=== PATIENT | male | born 1960 | race Caucasian/White ===

== ENCOUNTER 2019-07-14 08:00 | Inpatient (IN) ==
[2019-07-14] MEDS ORDERED: CLINDAMYCIN 600 MG/D5W 600 MG/50 ML IVPB IV ONE (08:33)
--- NOTE | 2019-07-14 08:33 | PROVIDER DOCUMENTATION ---
HPI-Rash/Wound/ReCheck - General Chief Complaint: Return/Recheck Stated Complaint: RETURN/RECHECK Time Seen by Provider: 07/14/19 08:28 Source: patient Allergies/Adverse Reactions: Allergies Allergy/AdvReac Type Severity Reaction Status Date / Time No Known Allergies Allergy Verified 07/13/19 14:57 Home Medications: Home Medication List Medication Instructions Recorded Confirmed Last Taken Type LISINOpril [Prinivil] 10 mg PO DAILY 07/14/19 07/14/19 02/17/19 10:00 History - History of Present Illness-Dermatology Nature of Presenting Problem: A 58 Y/O MALE PRESENTS WITH C/O PAIN AND SWELLING OF HIS LEFT HAND. IT HAS BEEN GOING ON FOR 3-4 DAYS AND IS PROGRESSIVELY GOT WORSE. HAS BEEN HAVING REDNESS AND THROBBING PAIN IN THE LEFT HAND. 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 PT DOES NOT REMEMBER WHICH ABXS HE WAS ON. 2-3 DAYS AFTER HE FINISHED THE ABXS THE PT STARTED HAVING SWELLING AND PAIN. TODAY PT SAYS HE FINISHED ABXS ATLEAST A WEEK AGO. PT WAS SEEN IN THE ER YESTERDAY AND LEFT WITH OUT TREATMENT, ON ASKING SAYS HE WAS DRINKING AND DID NOT WANT TO STAY. SAYS THE PAIN IS WORSE THAN YESTERDAY, DENIES ANY FEVER OR CHILLS BUT SAYS THE LEFT HAND FEELS WARM AND THE PAIN IS SHOOTING UP INTO HIS FOREARM. Review of Systems - Adult - REVIEW OF SYSTEMS - ADULT Constitutional: denies: no symptoms reported Eyes: denies: no symptoms reported Ears, Nose, Mouth & Throat: denies: no symptoms reported Cardiovascular: denies: no symptoms reported Respiratory: denies: no symptoms reported Gastrointestinal: denies: no symptoms reported Genitourinary: denies: no symptoms reported Musculoskeletal: reports: see HPI Integumentary: reports: see HPI Neurological: denies: no symptoms reported Psychiatric: denies: no symptoms reported Endocrine: denies: no symptoms reported Hematologic/Lymphatic: denies: no symptoms reported Allergic/Immunologic: denies: no symptoms reported Past History - Adult - PAST MEDICAL HISTORY-ADULT Review of Records: reports: Old Records Reviewed, Nursing Assessment Review, Medications Reviewed, Social history reviewed & non-contributory. Physical Exam-General - PHYSICAL EXAM-ADULT Initial Vital Signs Reviewed: Yes - CONSTITUTIONAL General Appearance: appears well, alert, no apparent distress - EYES Eyes: PERRL/EOMI - HEAD, EARS, NOSE, MOUTH & THROAT HENMT: normocephalic/atraumatic, moist mucous membranes, normal ENT inspection - NECK Neck: supple - RESPIRATORY Respiratory: lungs clear, normal breath sounds, no pleuratic chest pain, no respiratory distress, no accessory muscle use - CARDIOVASCULAR Cardiovascular: regular rate, rhythm, no murmur - GASTROINTESTINAL (ABDOMEN) Abdominal Exam: non tender, soft - MUSCULOSKELETAL Back Exam: no CVA tenderness, no vertebral tenderness Extremity: other (SWELLING, ERYTHEMA AND TENDERNESS OF THE LEFT HAND INVOLVING THE 2ND AND 3RD FINGERS AND ALL DORSUM OF LEFT HAND UPTO THE WRIST. FULL ROM. THERE IS A 1.5 CM HEALING LACERATION WITH SURROUNDING ERYTHEMA AND TENDERNESS WITH LOCALIZED EDEMA AT THE 2ND AND 3RD MCP JOINT.) Peripheral Pulses: radial (R): 2+, radial (L): 2+ - SKIN Integumentary: swelling (R HAND), tenderness (R HAND), warm (R HAND) - NEUROLOGIC Neurologic: grossly normal - PSYCHIATRIC Psych/Mental Status: normal mood/affect, normal thought content, normal thought process, oriented x 3 Progress - PLAN OF CARE/RESULTS Progress/Plan/Lab Results: Vital Signs - 8 hr 07/14/19 08:07 07/14/19 09:25 07/14/19 09:59 Temperature 98 F 98 F Pulse Rate 99 H 94 H 82 Respiratory Rate 18 19 24 Blood Pressure 185/128 171/121 148/105 O2 Sat by Pulse Oximetry 94 L 97 97 07/14/19 10:30 Temperature Pulse Rate 79 Respiratory Rate 25 H Blood Pressure 175/125 O2 Sat by Pulse Oximetry 94 L Laboratory Results - last 24 hr 07/14/19 07/14/19 07/14/19 08:40 09:13 09:20 WBC 9.88 RBC 5.27 Hgb 17.5 Hct 51.7 MCV 98.1 MCH 33.2 H MCHC 33.8 RDW Std Deviation 11.6 Plt Count 229 MPV 9.6 Immature Gran % (Auto) 0.2 Neut % (Auto) 76.2 H Lymph % (Auto) 11.5 L Valencia % (Auto) 11.2 H Eos % (Auto) 0.6 Baso % (Auto) 0.3 Immature Gran # (Auto) 0.02 Neut # (Auto) 7.52 H Lymph # (Auto) 1.14 L Valencia # (Auto) 1.11 H Eos # (Auto) 0.06 Baso # (Auto) 0.03 Sodium 139 Potassium 4.5 Chloride 101 Carbon Dioxide 26 Anion Gap 13 BUN 8 Creatinine 0.7 Estimated GFR/1.73 m2 > 60 BUN/Creatinine Ratio 11 Glucose 114 H Calculated Osmolality 277 Calcium 8.7 L Total Bilirubin 0.50 AST 33 ALT 35 Alkaline Phosphatase 106 Total Protein 7.6 Albumin 3.8 Globulin 4.0 Albumin/Globulin Ratio 1.0 Urine Opiates Screen NONE DETECTED Ur Oxycodone Screen NONE DETECTED Urine Methadone Screen NONE DETECTED U Propoxyphene Qual NONE DETECTED Ur Barbituates Screen NONE DETECTED Ur Tricyclics Screen NONE DETECTED Ur Phencyclidine Scrn NONE DETECTED Ur Amphetamines Screen NONE DETECTED U Methamphetamines Scrn NONE DETECTED U Benzodiazepines Scrn NONE DETECTED Urine Cocaine Screen NONE DETECTED U Cannabinoids Screen PRESUMPTIVE POSITIVE A Orders Category Date Time Status CBC WITH ELECTRONIC DIFF [HEME] Stat Lab 07/14/19 08:40 Completed COMPREHENSIVE METABOLIC PANEL [CHEM] Stat Lab 07/14/19 09:13 Completed URINE DRUG SCREEN PL Stat Lab 07/14/19 09:20 Completed Clindamycin 600 mg/D5w Med 07/14/19 08:33 Discontinued 600 mg in 50 ml IV NOW Clonidine [Catapres] Med 07/14/19 09:21 Discontinued 0.2 mg PO NOW ONE Ketorolac [Toradol] Med 07/14/19 09:28 Discontinued 30 mg IV NOW ONE Result Diagrams: 07/14/19 08:40 07/14/19 09:13 - REASSESSMENT Reassessment #1 Time Reassessed: 10:50 Status: improving (BP IMPROVED TO 114/64 AFTER CLONIDINE. WILL ADMIT FOR IV ABXS. D/W PT, WHO IS AGREABLE WITH THE ADMISSION.) - CONSULTS/PCP/HOSPITALIST Notification #1 *Consult/PCP/Hospitalist*: D/W DR JAVED Time Discussed: 10:45 Consult Disposition: Admit Departure - Departure Date of Disposition Decision: 07/14/19 Time of Disposition Decision: 10:50 DIAGNOSIS: Cellulitis and abscess of hand, Uncontrolled hypertension Disposition: ADMITTED INPATIENT 09 Certified Medical Emergency: Emergent Condition: Stable Referrals and Follow-Ups: None,PCP [Primary Care Provider] - - Critical Care Note This patient required my direct & personal management of CC.: No Attestation - Physician/ WALLACE Attestation Patient care was provided by Advanced Practice Provider:: No The physician spent face to face time with patient:: Yes Advanced Practice Provider documentation review:: Supervising physician onsite and consulted in the evaluation and care of this patient. The physician did have a face to face encounter with the patient.
[2019-07-14 08:46] LABS: HEMATOCRIT 51.7 % (42.0-52.0); HEMOGLOBIN 17.5 g/dL (14.0-18.0); RBC 5.27 XMIL (4.7-6.1); WBC 9.88 X1000 (4.8-10.8)
[2019-07-14 08:47] LABS: BASO# 0.03 X1000 (0.0-0.2); BASO% 0.3 % (0.0-0.8); EOS# 0.06 X1000 (0.0-0.7); EOS% 0.6 % (0.0-10.0); IMM GRAN# 0.02 X1000 (0.0-0.04); IMM GRAN% 0.2 % (0.0-0.5); LYMPH# 1.14 X1000 (1.2-3.4); LYMPH% 11.5 % (20.5-51.1); MCH 33.2 PG (27-31); MCHC 33.8 g/dL (33-37); MCV 98.1 FL (81-99); MONO# 1.11 X1000 (0.11-0.59); MONO% 11.2 % (1.7-9.3); MPV 9.6 FL (7.4-10.4); NEUT# 7.52 X1000 (1.4-6.5); NEUT% 76.2 % (42.2-75.2); PLT 229 X1000 (130-400); RDW 11.6 % (11.5-14.5)
[2019-07-14 09:10] LABS: ESTIMATED GFR > 60
[2019-07-14] MEDS ORDERED: CATAPRES PO ONE (09:21)
[2019-07-14] MEDS ORDERED: TORADOL IV ONE (09:28)
[2019-07-14 09:52] LABS: UR AMPHETAMINES QUAL NONE DETECTED (NONE DETECT); UR BARBITUATES QUAL NONE DETECTED (NONE DETECT); UR BENZODIAZEPIN QUAL NONE DETECTED (NONE DETECT); UR CANNABINOIDS QUAL PRESUMPTIVE POSITIVE (NONE DETECT); UR COCAINE QUAL NONE DETECTED (NONE DETECT); UR METHADONE QUAL NONE DETECTED (NONE DETECT); UR METHAMPHETAMINE QUAL NONE DETECTED (NONE DETECT); UR OPIATES QUAL NONE DETECTED (NONE DETECT); UR OXYCODONE QUAL NONE DETECTED (NONE DETECT); UR PCP QUAL NONE DETECTED (NONE DETECT); UR PROPOXYPHENE QUAL NONE DETECTED (NONE DETECT); UR TCA QUAL NONE DETECTED (NONE DETECT)
[2019-07-14 10:11] LABS: POTASSIUM 4.5 mmol/L (3.5-5.1); SODIUM 139 mmol/L (136-145)
[2019-07-14 10:12] LABS: AGAP 13; ALBUMIN 3.8 g/dL (3.5-5.0); BUN 8 mg/dL (8-22); CALCIUM 8.7 mg/dL (8.8-10.2); CHLORIDE 101 mmol/L (98-107); COSMO 277; CREATININE 0.7 mg/dL (0.7-1.2); GLUCOSE 114 mg/dL (70-104); TCO2 26 mmol/L (25-35); TOTAL PROTEIN 7.6 g/dL (6.3-8.3)
[2019-07-14 10:13] LABS: ALKALINE PHOSPHATASE 106 U/L (32-122); GOT 33 U/L (10-34); GPT 35 U/L (10-44)
[2019-07-14] MEDS ORDERED: APRESOLINE IV PRN (11:22)
[2019-07-14] MEDS ORDERED: NS 1,000 ML IV PRN (11:25)
[2019-07-14] MEDS ORDERED: TYLENOL PO PRN (11:25)
[2019-07-14] MEDS ORDERED: ZOFRAN IV PRN (11:25)
[2019-07-14] MEDS ORDERED: VANCOMYCIN IV PER PHARMACY MISC SCH (11:30)
[2019-07-14] MEDS: NORCO-7.5 PO PRN ×3 (12:01→21:45)
--- NOTE | 2019-07-14 12:09 | Diag Imaging Result Doc PS360 ---
EXAM: CHEST-1 VIEW 07/14/2019 HISTORY: sepsis TECHNIQUE: AP portable at 1212 COMMENT: There is an azygos lobe. The heart size and primary vascularity are within normal limits. There is no evidence of acute cardiac or pulmonary disease. IMPRESSION: No evidence of acute disease. Electronically signed by Cezar Merritt 07/14/2019 12:07 PM
[2019-07-14 12:20] LABS: INR 0.86; PROTIME 12.2 Seconds (11.0-16.0)
[2019-07-14 12:21] LABS: PTT 37.5 Seconds (22.3-41.8)
[2019-07-14 12:21] LABS: BILIRUBIN URINE NEGATIVE (NEGATIVE); BLOOD URINE 4+ (NEGATIVE); CLARITY CLEAR (CLEAR); COLOR YELLOW; GLUCOSE URINE NEGATIVE (NEGATIVE); KETONE URINE 1+(Small) mg/dL (NEGATIVE); LEUKOCYTES URINE NEGATIVE (NEGATIVE); NITRITE URINE NEGATIVE (NEGATIVE); SP GRAVITY URINE 1.015; UROBILINOGEN URINE NORMAL
[2019-07-14] MEDS: PRINIVIL PO SCH (12:37)
[2019-07-14] MEDS ORDERED: BENTYL PO PRN (12:45)
[2019-07-14] MEDS ORDERED: ATIVAN IV ONE (12:46)
[2019-07-14 12:58] LABS: URINE BACTERIA 3+ /HFP; URINE CAST NONE SEEN /LPF; URINE CRYSTAL NONE SEEN /HPF; URINE EPITHELIAL CELLS <10 /HPF (<10); URINE RBC <10 /HPF (<10); URINE SOURCE CLEAN CATCH; URINE WBC <10 /HPF (<10); URINE YEAST PRESENT /HPF
[2019-07-14] MEDS ORDERED: VANCOMYCIN 2,000 MG in NS 500 ML IV ONE (13:00)
[2019-07-14] MEDS: NICODERM PATCH TD SCH (13:24)
[2019-07-14] MEDS: LIBRIUM PO SCH ×2 (13:25→18:00)
[2019-07-14] MEDS: M.V.I.-12 10 ML, FOLIC ACID 1 MG, MAGNESIUM SULFATE 1 GM, THIAMINE 100 MG in NS 1,000 ML IV SCH (14:50)
--- NOTE | 2019-07-14 15:04 | HISTORY AND PHYSICAL ---
PRIMARY CARE PROVIDER: No one. CHIEF COMPLAINT: Left hand pain with swelling and redness. HISTORY OF PRESENT ILLNESS: Mr. Rick Carrion is a 58-year-old male with a medical history of hypertension, who presents today with complaints of left hand swelling with redness going all the way up to the elbow. Also with uncontrolled hypertension. 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 He went to [facility] where they gave him a tetanus shot and started him on antibiotics which the patient is unclear of which antibiotics he was started on. He states that those were completed 2 weeks ago, but around 3 or 4 days ago he noticed redness, swelling and pain. He can barely even move his hand or his fingers to make a full fist. There is erythema and cellulitis that ranges all the way up until the elbow all the way through the forearm. He denies fever or chills. He actually came here yesterday, but left due to the fact that he is a decently heavy drinker, and if he goes too long without alcohol he is at risk for withdrawal so he left. He comes back today because the throbbing and the pain, throbbing all the way in through the forearm, and so he is going to be treated with antibiotic therapy. We will also have to treat to prevent alcohol withdrawal. PAST MEDICAL HISTORY: Hypertension. PAST SURGICAL HISTORY: None. SOCIAL HISTORY: [id number]-[id number]-day smoker for 40 years. Drinks a pint of vodka with a half a case of beer on a daily basis. Last alcoholic beverage was 9:00 in the evening. He smokes marijuana daily. His current occupation is a secondary school registrar. FAMILY HISTORY: Mother from unknown cancer. Father from unknown cancer. ALLERGIES: No known drug allergies. REVIEW OF SYSTEMS: Fourteen point review of systems are complete, and all were negative except for those mentioned above in HPI. PHYSICAL EXAMINATION: VITAL SIGNS: Temperature 97.6 degrees, heart rate 82, respiratory rate 18, blood pressure 139/77, and O2 saturation 97% on room air. GENERAL: Mr. Rick Carrion is a 58-year-old male. He is in no acute distress. He is able to answer questions appropriately. HEENT: Atraumatic, normocephalic. Pupils equal, round, and reactive to light. Extraocular movements intact. Mucous membranes are dry. NECK: Trachea midline. CARDIOVASCULAR: S1, S2. Regular rate and rhythm. No rubs, gallops, or murmurs. No lower extremity edema. +2 dorsalis and radial pulses. Negative JVD and carotid bruits. PULMONARY: Clear to auscultation. Bilateral breath sounds. No accessory muscle use or work of breathing noted. GI: Soft, nontender, and nondistended. Positive bowel sounds x4. EXTREMITIES: Moves all extremities equally. Full range of motion. 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 NEUROLOGIC: Alert and oriented x3. Follows commands. Sensory is intact. SKIN: Warm, dry, and intact. LABORATORY DATA: White blood cells 9000, hemoglobin 17, hematocrit 51, and platelet count 229,000, INR 0.86. PTT is 37.5. Sodium 139, potassium 4.5, BUN 8, creatinine 0.7, glucose 114, calcium 8.7, bilirubin 0.50, AST 33, ALT 35, CK 92, troponin less than 0.01. Albumin is 3.8. Serum lactate 1.02. Urinalysis 3+ protein, 1+ ketones, 4+ blood, 3+ bacteria, and no white blood cells. Urine drug screen positive for cannabinoids. Serum alcohol level not yet obtained. IMAGING: Chest x-ray with no evidence of acute disease. ASSESSMENT AND PLAN: 1. Left hand work related laceration that is in the healing process now with cellulitis. The old laceration is between the 2nd and 3rd knuckles, but there is cellulitis that goes all the way up to the forearm. He has a normal white blood cell count. No fever. He has had a tetanus shot at [facility] around 3 weeks ago. He had a dose of clindamycin IV in the ER, but we will put him on vancomycin coverage. We will give him IV fluid hydration as well and check blood cultures. 2. Alcohol abuse on a daily basis. Last alcoholic beverage was 9:00 in the evening last night. He admits to drinking quite heavily 1 pint of vodka per day along with a half case of beer. We will put him on the low-dose Librium taper with p.r.n. Ativan IV as needed for withdrawals. We will do a 1 time dose now as he feels like he is a little shaky. He is mentating quite well. There are no signs of withdrawal at this time. 3. Uncontrolled hypertension. He presented with this. He got clonidine in the ER. We will continue his lisinopril and add p.r.n. hydralazine. 4. Tobacco abuse. Cessation discussed. We will do a nicotine patch as he is already requesting to go outside and smoke. 5. Deep venous thrombosis prophylaxis. SCD's. Dictated by KAYLA Shepherd for Hadley Arce MD cc: KAYLA Shepherd MD
[2019-07-14] MEDS ORDERED: PNEUMOVAX 23 IM ONE (15:15)
--- NOTE | 2019-07-14 19:27 | HISTORY AND PHYSICAL ---
ADDENDUM REPORT: The patient seen and examined by myself. Full note dictated and discussed with nurse practitioner. Patient presented to the hospital with left hand swelling and pain. Notes that several days ago he cut his hand while working. Since then, it has continued to worsen. We are going to admit him to the hospital and place him on antibiotics. We will follow him for alcohol withdrawal, as he does appear to have a large history of alcohol use. cc: Hadley Arce MD
[2019-07-14] MEDS: ATIVAN IV PRN (19:56)
[2019-07-15] MEDS: LIBRIUM PO SCH ×3 (00:07→13:00)
[2019-07-15] MEDS: ATARAX PO PRN ×2 (00:07→08:30)
[2019-07-15] MEDS: VANCOMYCIN 1,500 MG in NS 250 ML IV SCH ×2 (00:07→13:00)
[2019-07-15] MEDS: ROBAXIN PO PRN ×2 (00:07→13:00)
[2019-07-15] MEDS: NORCO-7.5 PO PRN ×3 (02:05→13:04)
[2019-07-15] MEDS: ATIVAN IV PRN (04:33)
[2019-07-15 05:18] VITALS: BP 144/99
[2019-07-15 06:09] LABS: BASO# 0.02 X1000 (0.0-0.2); BASO% 0.4 % (0.0-0.8); EOS% 4.4 % (0.0-10.0); HEMATOCRIT 44.6 % (42.0-52.0); HEMOGLOBIN 14.9 g/dL (14.0-18.0); IMM GRAN# 0.01 X1000 (0.0-0.04); IMM GRAN% 0.2 % (0.0-0.5); LYMPH# 0.91 X1000 (1.2-3.4); MCH 32.7 PG (27-31); MCHC 33.4 g/dL (33-37); MONO# 0.65 X1000 (0.11-0.59); MONO% 14.3 % (1.7-9.3); MPV 9.7 FL (7.4-10.4); NEUT# 2.77 X1000 (1.4-6.5); NEUT% 60.7 % (42.2-75.2); PLT 171 X1000 (130-400); RBC 4.55 XMIL (4.7-6.1); RDW 11.6 % (11.5-14.5); WBC 4.56 X1000 (4.8-10.8)
[2019-07-15 06:45] LABS: AGAP 7; ALBUMIN 2.9 g/dL (3.5-5.0); ALKALINE PHOSPHATASE 84 U/L (32-122); BUN 9 mg/dL (8-22); CHLORIDE 110 mmol/L (98-107); COSMO 282; CREATININE 0.7 mg/dL (0.7-1.2); ESTIMATED GFR > 60; GLUCOSE 94 mg/dL (70-104); GOT 24 U/L (10-34); GPT 24 U/L (10-44); SODIUM 142 mmol/L (136-145); TCO2 25 mmol/L (25-35); TOTAL PROTEIN 5.9 g/dL (6.3-8.3)
[2019-07-15] MEDS: PRINIVIL PO SCH (08:27)
[2019-07-15] MEDS: NICODERM PATCH TD SCH (08:27)
[2019-07-15] MEDS: M.V.I.-12 10 ML, FOLIC ACID 1 MG, MAGNESIUM SULFATE 1 GM, THIAMINE 100 MG in NS 1,000 ML IV SCH (09:11)
--- NOTE | 2019-07-15 15:21 | DISCHARGE SUMMARY ---
ADMISSION DATE: 07/14/2019 DISCHARGE DATE: 07/15/2019 ADMISSION DIAGNOSIS: 1. Left hand work-related laceration is in the healing process now with cellulitis in that hand. 2. Alcohol abuse on a daily basis. 3. Uncontrolled hypertension. 4. Tobacco abuse. DISCHARGE DIAGNOSIS: 1. Left hand work-related laceration that is in the healing process, now with cellulitis. 2. Alcohol use on a daily basis. 3. Uncontrolled hypertension, much more improved. 4. Tobacco abuse. CONSULTATIONS: None. SURGERIES AND PROCEDURES: None. HOSPITAL COURSE: On 07/14/2019, Mr. Rick Carrion presented with worsening redness, swelling, and pain in his left hand after having a little laceration that was work related two weeks ago. Apparently he was on antibiotics, which completed around 2 weeks ago. The injury was 3 weeks ago. He completed antibiotics 2 weeks ago and then over the last 3 to 4 days prior to admission, he had redness, swelling, and pain in that hand. It had actually presented the day before being admitted with a complaint but left due to needing to drink alcohol to keep from having alcohol withdrawals. He re-presented on the where he was given clindamycin and then also given vancomycin. He was started on an alcohol withdrawal protocol and given antibiotics, and is currently stable. He is going to be discharged with antibiotic oral therapy. DISCHARGE VITAL SIGNS: Temperature 97.4 degrees, heart rate 66. Blood pressure 144/99, respiratory rate 18, saturation on room air 95%. LAB DATA: White blood cells 4000, hemoglobin 14, hematocrit 44, platelet count 171,000, sodium 142, potassium 4.0, BUN is 9, creatinine 0.7, glucose 94. Calcium 8.0, bilirubin 0.40, AST 24, ALT 24. Albumin 2.9. Urine drug screen was positive for cannabinoids. IMAGING: Chest x-ray, no evidence of acute disease. On telemetry he was sinus rhythm with some PVCs. DIET: Regular. ACTIVITY: As tolerated. DISCHARGE MEDICATIONS: 1. He will take Augmentin 875 p.o. twice a day. 2. Doxycycline 100 mg p.o. twice a day. 3. Nicotine patch. 4. Dalton 7.5, 1 to 2 every 4 hours p.r.n. 5. Lisinopril 20 mg p.o. daily. PHYSICIAN FOLLOW UP: None. DISCHARGE INSTRUCTIONS: If condition changes, contact physician and/or return to the emergency department. Changes may include, but are not limited to, shortness of breath, increased fatigue, excessive weight loss or gain, unmanageable pain, signs or symptoms of infection. Seek care if there is more redness or it starts to increase, pain increases, foul smelling drainage, or fever greater than 101. Keep affected area clean and dry. DISCHARGE DISPOSITION: Home. Dictated by KAYLA Shepherd for Mahad Lu MD Addendum: Patient seen and examined by myself. Agree with KAYLA note. It reflects my assessment and plan. Patient is being discharged in stable condition. Will be seen by PCP in a week. cc: KAYLA Shepherd MD [facility]
== END 2019-07-15 13:43 | disposition home or self-care (01) | DRG 603 ==
LOC: P.ED 08:00 → P.MEDSURG 11:44 → SUATTDRO 11:44
PROVIDERS: ATTEND Internal Medicine